=== PATIENT | male | born 1955 | race Caucasian/White ===

== ENCOUNTER 2017-04-18 13:51 | Outpatient (CLI) | payer OTHER ==
--- NOTE | 2017-04-18 15:53 | RAD ---
TWO VIEWS CHEST: Date: 04-18-17 History: Chronic obstructive pulmonary disease. Comparison: 05-28-16 FINDINGS: Two views of the chest demonstrate osteoporosis of the thoracic spine. The lungs are well aerated. No evidence of effusions, pneumonia, or pneumothorax seen. IMPRESSION: Unremarkable two views chest. POS: [facility]
== END 2017-04-18 13:52 | disposition home or self-care (01) ==
LOC: RAD 13:51
PROVIDERS: ATTEND Internal Medicine
DX: R06.00 Dyspnea, unspecified (principal)
CPT/HCPCS: 71046

== ENCOUNTER 2018-03-01 08:37 | Day surgery (SDC) | payer OTHER ==
[2018-02-28 09:27] VITALS: BMI 42.9
--- NOTE | 2018-03-01 11:24 | OP ---
DATE OF PROCEDURE: 03/01/2018 PROCEDURE PERFORMED: Colonoscopy with snare polypectomy. PREMEDICATION: Given by the Anesthesiology Department. PREPROCEDURE DIAGNOSIS: Colon screening. POSTPROCEDURE DIAGNOSES: 1. 2 x 5 multilobulated polyp in the ascending colon, not removed. 2. Transverse colon polyps and sigmoid polyps, status post polypectomies. 3. Otherwise normal colon exam. DESCRIPTION OF PROCEDURE: Written consents were obtained prior to procedure. After adequate sedation, rectal exam performed was normal. The endoscope was advanced to the cecum. The quality of the bowel prep was adequate. The cecum and ileocecal valve appeared normal. In the proximal to mid ascending colon, a large 2 x 5 cm multilobulated polyp was noted. The hepatic flexure appeared normal. A 6 mm sessile polyp was noted in the transverse colon. It was removed with electrocautery with complete removal and retrieved. The splenic flexure appeared normal. The descending colon appeared normal. A 4 mm sessile polyp was noted in the sigmoid and was removed with cold snare and retrieved. The rectosigmoid and rectal vault appeared normal including retroflexion. The patient tolerated the procedure well. ASSESSMENT: 1. Transverse and sigmoid polyps, status post removal and retrieved. 2. A 2 x 5 cm multilobulated polyp in the ascending colon, it was not removed. 3. Otherwise normal colon exam. PLAN: 1. Await biopsy results. 2. We will refer for EMR of ascending colon polyps. Job ID: [id number]
[2018-03-01] MEDS ORDERED: PROPOFOL 200 MG/20 ML VIAL ONE (14:51)
[2018-03-01] MEDS ORDERED: Lidocaine 1% PF 5 ML VIAL ONE (14:51)
== END 2018-03-01 12:00 | disposition home or self-care (01) ==
LOC: SDC 08:37
PROVIDERS: ATTEND Internal Medicine Gastroenterology
PROC: 0DBN8ZX Excision of Sigmoid Colon, Via Natural or Artificial Opening Endoscopic, Diagnostic (ICD-10-PCS; principal; 2018-03-01)
PROC: 0D5L8ZZ Destruction of Transverse Colon, Via Natural or Artificial Opening Endoscopic (ICD-10-PCS; principal; 2018-03-01)
DX: Z12.11 Encounter for screening for malignant neoplasm of colon (principal); D12.3 Benign neoplasm of transverse colon; D12.5 Benign neoplasm of sigmoid colon; K63.5 Polyp of colon; I48.91 Unspecified atrial fibrillation; J44.9 Chronic obstructive pulmonary disease, unspecified; F17.210 Nicotine dependence, cigarettes, uncomplicated; Z79.01 Long term (current) use of anticoagulants; Z79.899 Other long term (current) drug therapy; Z88.8 Allergy status to other drugs, medicaments and biological substances; Z91.018 Allergy to other foods
CPT/HCPCS: 88305; J2001; J2704

== ENCOUNTER 2018-03-29 10:49 | Outpatient (CLI) | payer OTHER ==
--- NOTE | 2018-03-29 12:21 | RAD ---
CHEST TWO VIEWS: HISTORY: Dyspnea. COMPARISON: 04/18/2017 FINDINGS: The cardiac silhouette and pulmonary vasculature are unremarkable. Chronic interstitial opacities at each lung base are similar in appearance to the prior study. The lungs remain hyperinflated. The m ediastinum is midline. No lobar consolidation, pneumothorax, or pleural fluid. Degenerative changes of the thoracic spine. IMPRESSION: Chronic type findings are stable. No active cardiopulmonary abnormalities are demonstrated. POS: [facility]
== END 2018-03-29 10:50 | disposition home or self-care (01) ==
LOC: RAD 10:49
PROVIDERS: ATTEND Internal Medicine
DX: R06.00 Dyspnea, unspecified (principal)
CPT/HCPCS: 71046

== ENCOUNTER 2018-07-31 10:10 | Outpatient (CLI) | payer OTHER ==
--- NOTE | 2018-07-31 12:01 | RAD ---
2 VIEW CHEST: Date: 07/31/18 INDICATION: Dyspnea. COMPARISON: 03/29/18. FINDINGS: Mild hyperexpansion again noted. Interstitial and parenchymal markings in the lung bases appear stabl e suggesting chronic change. No evidence of infiltrate or significant effusion. Heart and mediastinum unremarkable and unchanged in appearance. Mild apical pleural thickening again noted. IMPRESSION: Chronic changes appear stable. No evidence of acute process. POS: [facility]
== END 2018-07-31 10:11 | disposition home or self-care (01) ==
LOC: RAD 10:10
PROVIDERS: ATTEND Internal Medicine
DX: R06.00 Dyspnea, unspecified (principal)
CPT/HCPCS: 71046

== ENCOUNTER 2020-01-28 09:52 | Outpatient (CLI) | payer OTHER ==
--- NOTE | 2020-01-28 10:19 | RAD ---
PA AND LATERAL CHEST: HISTORY: Dyspnea. COMPARISON: A 11/26/2019 exam as well as a 07/31/2018 exam. FINDINGS: Heart size is within normal limits. Chronic-appearing lung changes are felt to be stable as compared to the prior studies. No new process. IMPRESSION: Chronic-appearing lung change. POS: [facility]
== END 2020-01-28 09:53 | disposition home or self-care (01) ==
LOC: BICRAD 09:52
PROVIDERS: ATTEND Internal Medicine Critical Care Medicine
DX: R06.00 Dyspnea, unspecified (principal)
CPT/HCPCS: 71046

== ENCOUNTER 2020-06-24 08:17 | Outpatient (CLI) | payer OTHER | END 2020-06-24 08:18 | disposition home or self-care (01) | LOC: BICRAD 08:17 | PROVIDERS: ATTEND Internal Medicine Critical Care Medicine | DX: R06.09 Other forms of dyspnea (principal) | CPT/HCPCS: 71046 ==

== ENCOUNTER 2020-12-30 16:20 | Inpatient (IN) | payer OTHER ==
[~2020-12-30 16:20] MED LIST: Magnesium Sulfate 4 GM in Sodium Chloride 0.9% 250 ML 250 ML IVPB SCH
[2020-12-30 17:07] LABS: #Basophils 0.1 thou/uL (0.0-0.2); #Eosinphils 0.1 thou/uL (0.0-0.7); #Lymphocytes 4.2 thou/uL (1.20-3.40); #Monocytes 0.8 thou/uL (0.11-0.59); #Neutrophils 6.6 thou/uL (1.40-6.50); %Basophils 0.6 % (0.0-1.0); %Eosinophils 1.2 % (0.0-10.0); %Lymphocytes 35.5 % (21.0-51.0); %Monocytes 6.5 % (0.0-10.0); %Neutrophils 56.3 % (42.0-75.0); Mean Corpuscular Hemoglobin 31.5 pg (27.0-31.0); Mean Corpuscular Volume 95.5 fL (78.0-98.0); Mean Platelet Volume 8.1 fL (7.4-10.4); Platelet Count 114 thou/uL (130-400); RBC Distribution Width 14.3 % (11.5-14.5); Red Blood Cell (RBC) Count 5.07 mill/uL (4.70-6.10); White Blood Cell (WBC) Count 11.8 thou/uL (4.8-10.8)
[2020-12-30] MEDS ORDERED: Magnesium 2 GM/50 ML BAG (IN WATER) ONE (17:18)
[2020-12-30] MEDS ORDERED: Dexamethasone 10 MG/ML VIAL ONE (17:18)
[2020-12-30 17:20] LABS: Platelet Morphology Comment Appears Decreased; RBC Morphology Normal
[2020-12-30] MEDS ORDERED: Albuterol Sulfate 1.25 MG/3 ML NEB ONE (17:20)
[2020-12-30] MEDS ORDERED: Dexamethasone 4 mg/ml Vial ONE (17:21)
[2020-12-30 17:23] LABS: ALT (SGPT) 21 U/L (8-55); AST (SGOT) 24 U/L (5-34); Albumin 3.8 g/dL (3.4-4.8); Alkaline Phosphatase 80 U/L (40-110); Anion Gap 12 mmol/L (10-20); BUN (Urea Nitrogen) 8 mg/dL (8.4-25.7); Bilirubin, Total 0.5 mg/dL (0.2-1.2); Calc. Creatinine Clearance 0 mL/min (70-130); Calcium 8.7 mg/dL (7.8-10.44); Carbon Dioxide 28 mmol/L (23-31); Chloride 104 mmol/L (98-107); Glucose 98 mg/dL (80-115); Potassium 3.4 mmol/L (3.5-5.1); Protein, Total 6.8 g/dL (5.8-8.1); Sodium 141 mmol/L (136-145)
[2020-12-30 17:48] LABS: CKMB 4.5 ng/mL (0-6.6)
[2020-12-30] MEDS ORDERED: Aspirin Chewable 81 MG TAB ONE (18:27)
[2020-12-30] MEDS ORDERED: cefTRIAXone\\ROCEPHIN 1 GM VIAL ONE (18:27)
[2020-12-30] MEDS ORDERED: Albuterol Sulfate 2.5 mg/3 ml Neb NEB PRN (18:59)
[2020-12-30] MEDS ORDERED: Acetaminophen 325 MG TAB PO PRN (19:03)
[2020-12-30] MEDS ORDERED: Ondansetron PF 4 MG/2 ML Vial IVP PRN (19:03)
[2020-12-30] MEDS ORDERED: Senokot S 8.6-50 MG TAB PO PRN (19:03)
[2020-12-30] MEDS ORDERED: Ondansetron ODT 4 MG TAB PO PRN (19:03)
[2020-12-30] MEDS ORDERED: guaiFENesin 200 MG TAB PO PRN (20:08)
[2020-12-30] MEDS ORDERED: Potassium Chloride 20 MEQ TAB PO SCH (20:15)
[2020-12-30 20:37] LABS: Magnesium 1.3 mg/dL (1.6-2.6)
[2020-12-30 20:54] VITALS: BMI 44.9
[2020-12-30 21:09] LABS: SARS-CoV-2 NAA Rapid Test Not Detected (NotDetected)
[2020-12-30] MEDS: Famotidine 20 MG TAB PO SCH (21:14)
[2020-12-30] MEDS ORDERED: Electrolyte Replacement Protocol 1 EACH FS SCH (22:00)
[2020-12-30 23:05] LABS: Troponin I 0.058 ng/mL (< 0.028)
[2020-12-31] MEDS: methylPREDNISolone Sod Succ 40 MG VIAL IVP SCH ×4 (00:01→20:39)
[2020-12-31] MEDS ORDERED: Magnesium Sulfate 4 GM in Sodium Chloride 0.9% 250 ML 250 ML IVPB SCH ×2 (00:15→08:00)
[2020-12-31 05:45] LABS: Hemoglobin 15.2 g/dL (14.0-18.0); Mean Corpuscular HGB CONC 32.7 g/dL (32.0-36.0); Mean Corpuscular Hemoglobin 31.5 pg (27.0-31.0); Mean Corpuscular Volume 96.1 fL (78.0-98.0); Mean Platelet Volume 7.9 fL (7.4-10.4); Platelet Count 122 thou/uL (130-400); RBC Distribution Width 14.1 % (11.5-14.5); Red Blood Cell (RBC) Count 4.84 mill/uL (4.70-6.10); White Blood Cell (WBC) Count 8.6 thou/uL (4.8-10.8)
[2020-12-31 05:56] LABS: Anion Gap 13 mmol/L (10-20); BUN (Urea Nitrogen) 8 mg/dL (8.4-25.7); Calc. Creatinine Clearance 217 mL/min (70-130); Calcium 8.8 mg/dL (7.8-10.44); Carbon Dioxide 26 mmol/L (23-31); Chloride 105 mmol/L (98-107); Glucose 135 mg/dL (80-115); Magnesium 2.5 mg/dL (1.6-2.6); Sodium 140 mmol/L (136-145)
[2020-12-31 06:35] LABS: Band 7 % (5-11); Lymphocytes 15 % (21-51); MDiff Complete? YES; Monocytes 4 % (0-10); Neutrophil 73 % (42-75)
[2020-12-31] MEDS: Dronedarone HCl 400 MG TAB PO SCH ×2 (08:40→18:30)
[2020-12-31] MEDS: Famotidine 20 MG TAB PO SCH ×2 (08:41→20:42)
[2020-12-31] MEDS: Apixaban 5 MG TAB PO SCH ×2 (08:41→20:39)
[2020-12-31] MEDS: Multivit, Therapeutic 1 TAB PO SCH (08:41)
[2020-12-31] MEDS: Fish Oil 1,000 MG CAP PO SCH ×2 (08:41→20:38)
[2020-12-31] MEDS: Ascorbic Acid 500 mg Chewable Tablet PO SCH (08:41)
[2020-12-31] MEDS: Bupropion 150 MG XL TAB PO SCH (08:41)
[2020-12-31] MEDS: Furosemide 40 MG TAB PO SCH ×3 (08:41→20:42)
[2020-12-31] MEDS ORDERED: Enoxaparin Sodium 40 MG/0.4 ML SYRINGE SC SCH (09:00)
[2020-12-31] MEDS: Mometasone 100 MCG/Formoterol 5 MCG 120 PUFF INHALER INH SCH (19:14)
[2021-01-01] MEDS: methylPREDNISolone Sod Succ 40 MG VIAL IVP SCH ×4 (00:29→17:37)
[2021-01-01] MEDS: Benzonatate 100 MG CAP PO PRN ×2 (00:29→09:04)
[2021-01-01] MEDS: Mometasone 100 MCG/Formoterol 5 MCG 120 PUFF INHALER INH SCH ×2 (07:16→21:33)
[2021-01-01] MEDS: Furosemide 40 MG TAB PO SCH ×3 (08:53→21:33)
[2021-01-01] MEDS: Apixaban 5 MG TAB PO SCH ×2 (08:53→21:32)
[2021-01-01] MEDS: Cyanocobalamin (Vitamin B-12) 1,000 MCG TAB PO SCH (08:53)
[2021-01-01] MEDS: Folic Acid 1 MG TAB PO SCH (08:53)
[2021-01-01] MEDS: Ascorbic Acid 500 mg Chewable Tablet PO SCH (08:57)
[2021-01-01] MEDS: Dronedarone HCl 400 MG TAB PO SCH ×2 (08:57→17:37)
[2021-01-01] MEDS: Fish Oil 1,000 MG CAP PO SCH ×2 (08:57→21:33)
[2021-01-01] MEDS: Bupropion 150 MG XL TAB PO SCH (08:57)
[2021-01-01] MEDS: Multivit, Therapeutic 1 TAB PO SCH (08:58)
[2021-01-01] MEDS: Famotidine 20 MG TAB PO SCH ×2 (08:58→21:33)
[2021-01-02] MEDS: methylPREDNISolone Sod Succ 40 MG VIAL IVP SCH ×2 (01:59→05:52)
[2021-01-02] MEDS: Benzonatate 100 MG CAP PO PRN (04:24)
[2021-01-02] MEDS: Mometasone 100 MCG/Formoterol 5 MCG 120 PUFF INHALER INH SCH (07:19)
[2021-01-02] MEDS ORDERED: predniSONE 20 MG TAB PO SCH (08:00)
[2021-01-02] MEDS: Dronedarone HCl 400 MG TAB PO SCH (08:27)
[2021-01-02] MEDS: Cyanocobalamin (Vitamin B-12) 1,000 MCG TAB PO SCH (08:27)
[2021-01-02] MEDS: Fish Oil 1,000 MG CAP PO SCH (08:27)
[2021-01-02] MEDS: Famotidine 20 MG TAB PO SCH (08:28)
[2021-01-02] MEDS: Folic Acid 1 MG TAB PO SCH (08:28)
[2021-01-02] MEDS: Multivit, Therapeutic 1 TAB PO SCH (08:28)
[2021-01-02] MEDS: Ascorbic Acid 500 mg Chewable Tablet PO SCH (08:28)
[2021-01-02] MEDS: Furosemide 40 MG TAB PO SCH (08:28)
[2021-01-02] MEDS: Apixaban 5 MG TAB PO SCH (08:28)
[2021-01-02] MEDS: Bupropion 150 MG XL TAB PO SCH (08:28)
[2021-01-02] MEDS ORDERED: Doxycycline 100 MG CAP PO SCH (09:00)
[2021-01-02 14:12] VITALS: BP 119/69; TEMP 98.5
== END 2021-01-02 14:14 | disposition home or self-care (01) | DRG 189 ==
LOC: ERS 16:20 → 2NO 18:33 → T4-B 01-01 14:54
PROVIDERS: ADMIT Student in an Organized Health Care Education/Training Program; ATTEND Internal Medicine
PROC: 5A09357 Assistance with Respiratory Ventilation, Less than 24 Consecutive Hours, Continuous Positive Airway Pressure (ICD-10-PCS; principal; 2021-01-01)
DX: J96.21 Acute and chronic respiratory failure with hypoxia (principal); J44.1 Chronic obstructive pulmonary disease with (acute) exacerbation; I48.20 Chronic atrial fibrillation, unspecified; Z68.41 Body mass index [BMI] 40.0-44.9, adult; I24.8 Other forms of acute ischemic heart disease; Z20.822 Contact with and (suspected) exposure to COVID-19; I10 Essential (primary) hypertension; F17.210 Nicotine dependence, cigarettes, uncomplicated; K21.9 Gastro-esophageal reflux disease without esophagitis; E87.6 Hypokalemia; G47.33 Obstructive sleep apnea (adult) (pediatric); E66.01 Morbid (severe) obesity due to excess calories; Z79.01 Long term (current) use of anticoagulants; Z88.8 Allergy status to other drugs, medicaments and biological substances; Z79.899 Other long term (current) drug therapy
CPT/HCPCS: 36415; 71045; 80048; 80053; 82553; 83735; 83880; 84484; 85025; 93005; 94640; 94760; 96365; 96367; 96375; J0696; J1100; J2920; J3475; J3490; J7050; J7512; J7620; U0002

== ENCOUNTER 2021-09-18 07:59 | Outpatient (CLI) | payer OTHER | END 2021-09-18 08:00 | disposition home or self-care (01) | LOC: RAD 07:59 | PROVIDERS: ATTEND Internal Medicine Critical Care Medicine | DX: R06.00 Dyspnea, unspecified (principal) | CPT/HCPCS: 71046 ==

== ENCOUNTER 2022-09-29 13:51 | Outpatient (CLI) | payer MEDICARE | END 2022-09-29 13:52 | disposition home or self-care (01) | LOC: RAD 13:51 | PROVIDERS: ATTEND Internal Medicine Critical Care Medicine | DX: R06.00 Dyspnea, unspecified (principal); J98.4 Other disorders of lung | CPT/HCPCS: 71046 ==

== ENCOUNTER 2023-01-19 14:12 | Outpatient (CLI) | payer MEDICARE | END 2023-01-19 14:13 | disposition home or self-care (01) | LOC: RAD 14:12 | PROVIDERS: ATTEND Internal Medicine Critical Care Medicine | DX: R06.00 Dyspnea, unspecified (principal); J98.11 Atelectasis; J98.4 Other disorders of lung | CPT/HCPCS: 71046 ==

== ENCOUNTER 2023-06-29 09:59 | Outpatient (CLI) | payer MEDICARE | END 2023-06-29 10:00 | disposition home or self-care (01) | LOC: RAD 09:59 | PROVIDERS: ATTEND Internal Medicine Critical Care Medicine | DX: R06.00 Dyspnea, unspecified (principal); J98.4 Other disorders of lung; I77.89 Other specified disorders of arteries and arterioles | CPT/HCPCS: 71046 ==